=== PATIENT | male | born 1990 | race African-American/Black ===

== ENCOUNTER 2022-04-06 16:09 | Inpatient (IN) | payer SELFPAY ==
[2022-04-06 18:22] LABS: #Basophils 0.1 10x3/uL (0.0-0.2); #Eosinphils 0.1 10x3/uL (0.0-0.5); #Monocytes 0.9 10x3/uL (0.0-1.1); #Neutrophils 10.8 10x3/uL (1.5-8.4); %Basophils 0.6 % (0.0-2.0); %Eosinophils 0.4 % (0.0-6.0); %Lymphocytes 16.1 % (18.0-47.0); %Monocytes 6.2 % (0.0-10.0); %Neutrophils 76.3 % (40.0-75.0); Hemoglobin 16.1 g/dL (13.5-17.5); Mean Corpuscular HGB CONC 34.3 g/dL (32.0-36.0); Mean Corpuscular Volume 78.7 fl (81.2-95.1); Mean Platelet Volume 12.8 fl (7.4-10.4); Platelet Count 320 10x3/uL (150-450); RBC Distribution Width 14.8 % (11.5-14.5); Red Blood Cell (RBC) Count 5.97 10x6/uL (4.32-5.72); White Blood Cell (WBC) Count 14.1 10x3/uL (3.5-10.5)
[2022-04-06 18:27] LABS: Bilirubin Neg (Negative); Blood, Urine Negative (Negative); Clarity Clear (Clear); Glucose, Urine (Dipstick) >=1000 mg/dL (Negative); Ketone, Urine 150 mg/dL (Negative); Leukocyte Negative (Negative); Nitrite Negative (Negative); Protein, Urine (Dipstick) Negative (Neg-Trace); Specific Gravity, Urine 1.015 (1.005-1.030); Urobilinogen Normal mg/dL (Less than 2)
[2022-04-06 18:36] LABS: ALT (SGPT) 20 U/L (8-55); AST (SGOT) 17 U/L (5-34); Albumin 5.2 g/dL (3.5-5.0); Alkaline Phosphatase 200 U/L (40-110); Anion Gap 32 mmol/L (10-20); BUN (Urea Nitrogen) 21 mg/dL (8.9-20.6); Bilirubin, Total 0.7 mg/dL (0.2-1.2); Calc. Creatinine Clearance 0 mL/min (70-130); Calcium 11.1 mg/dL (7.8-10.44); Carbon Dioxide 17 mmol/L (22-29); Chloride 92 mmol/L (98-107); Estimated GFR 42; Globulin 4.5 g/dL (2.4-3.5); Potassium 5.4 mmol/L (3.5-5.1); Protein, Total 9.7 g/dL (6.0-8.3); Sodium 136 mmol/L (136-145)
[2022-04-06 18:48] LABS: Glucose 644 mg/dL (70-105)
[2022-04-06] MEDS ORDERED: Insulin Regular 300 UNITS/3 ML VIAL ONE (18:51)
[2022-04-06] MEDS ORDERED: INSULIN REGULAR IN 0.9 % NACL 100 UNIT/100 ML BAG ONE (18:51)
[2022-04-06 19:04] LABS: SARS-CoV-2 NAA Rapid Test Not Detected (NotDetected)
[2022-04-06] MEDS ORDERED: Guaifenesin DM 100-10/5 ML UDCUP PO PRN (19:18)
[2022-04-06] MEDS ORDERED: Ondansetron PF 4 MG/2 ML Vial IVP PRN (19:18)
[2022-04-06] MEDS ORDERED: HYDROcodone/Acetaminophen 5/325 mg Tablet PO PRN (19:18)
[2022-04-06] MEDS ORDERED: Calcium Carbonate 500 MG ChewTAB PO PRN (19:18)
[2022-04-06] MEDS ORDERED: Senokot S 8.6-50 MG TAB PO PRN (19:18)
[2022-04-06] MEDS ORDERED: Zolpidem Tartrate 5 MG TAB PO PRN (19:18)
[2022-04-06] MEDS ORDERED: Acetaminophen 325 MG TAB PO PRN (19:18)
[2022-04-06] MEDS ORDERED: INSULIN REGULAR IN 0.9 % NACL 100 UNIT in Premix Bag 1 BAG IVPB SCH (19:30)
[2022-04-06] MEDS ORDERED: Dextrose 5 %-0.45 % NaCl 1,000 ML IV SCH (19:30)
[2022-04-06 20:25] LABS: Actual Bicarbonate (HCO3v) 15 mEq/L (22-28); Base Excess -11.5 mEq/L (-2.0 to +3.0); Calcium, Ionized (venous) 1.24 mmol/L (1.16-1.32); Chloride (VBG) 101 mmol/L (98-106); Critical Notified By: CP.JL; Hemoglobin (Hb) 16.2 g/dL (13.2-17.3); Potassium (VBG) 4.16 mmol/L (3.70-5.30); Puncture Site Other Site; RapidComm Collect By LAB; Sodium 140.5 mmol/L (133-146); pH (venous) 7.22 (7.32-7.43)
[2022-04-06 21:56] VITALS: BMI 23.3
[2022-04-06] MEDS: Benzonatate 100 MG CAP PO SCH (22:23)
[2022-04-06] MEDS: Sodium Chloride 0.9% 1,000 ML IV SCH (22:40)
[2022-04-07 00:01] LABS: Anion Gap 18 mmol/L (10-20); BUN (Urea Nitrogen) 15 mg/dL (8.9-20.6); Calc. Creatinine Clearance 76 mL/min (70-130); Calcium 9.4 mg/dL (7.8-10.44); Carbon Dioxide 20 mmol/L (22-29); Chloride 108 mmol/L (98-107); Estimated GFR 64; Glucose 246 mg/dL (70-105); Magnesium 2.2 mg/dL (1.6-2.6); Phosphorus 1.9 mg/dL (2.3-4.7); Potassium 3.7 mmol/L (3.5-5.1); Sodium 142 mmol/L (136-145)
[2022-04-07] MEDS ORDERED: Potassium Phosphate 30 MMOL in Sodium Chloride 0.9% 250 ML 250 ML IVPB SCH (00:30)
[2022-04-07 04:28] LABS: #Eosinphils 0.2 10x3/uL (0.0-0.5); #Monocytes 1.1 10x3/uL (0.0-1.1); #Neutrophils 6.7 10x3/uL (1.5-8.4); %Basophils 0.4 % (0.0-2.0); %Eosinophils 2.1 % (0.0-6.0); %Lymphocytes 25.4 % (18.0-47.0); %Neutrophils 61.8 % (40.0-75.0); Hemoglobin 12.6 g/dL (13.5-17.5); Mean Corpuscular HGB CONC 35.1 g/dL (32.0-36.0); Mean Corpuscular Hemoglobin 27.2 pg (27.0-33.0); Mean Corpuscular Volume 77.5 fl (81.2-95.1); Platelet Count 258 10x3/uL (150-450); RBC Distribution Width 14.1 % (11.5-14.5); Red Blood Cell (RBC) Count 4.63 10x6/uL (4.32-5.72); White Blood Cell (WBC) Count 10.9 10x3/uL (3.5-10.5)
[2022-04-07 04:41] LABS: Anion Gap 14 mmol/L (10-20); BUN (Urea Nitrogen) 13 mg/dL (8.9-20.6); CK (CPK) 40 U/L (30-200); Calc. Creatinine Clearance 87 mL/min (70-130); Calcium 8.8 mg/dL (7.8-10.44); Carbon Dioxide 21 mmol/L (22-29); Chloride 110 mmol/L (98-107); Estimated GFR 75; Glucose 155 mg/dL (70-105); Phosphorus 3.2 mg/dL (2.3-4.7); Potassium 3.8 mmol/L (3.5-5.1); Sodium 141 mmol/L (136-145)
[2022-04-07] MEDS: Sodium Chloride 0.9% 1,000 ML IV SCH (05:06)
[2022-04-07] MEDS ORDERED: Dextrose 50% Abboject 50 ML SYRINGE SLOW IVP PRN (05:23)
[2022-04-07] MEDS ORDERED: HumaLOG 300 UNITS/3 ML VIAL SC PRN (05:23)
[2022-04-07] MEDS ORDERED: Dextrose 5% in Water 1,000 ML IV PRN (05:23)
[2022-04-07] MEDS ORDERED: Lactated Ringer's 1,000 ML IV SCH (05:30)
[2022-04-07] MEDS ORDERED: Lantus 1000 UNITS/10 ML VIAL SC SCH (06:00)
[2022-04-07] MEDS: Benzonatate 100 MG CAP PO SCH (08:06)
[2022-04-07] MEDS ORDERED: FLU VACC QS2022-23(6MOS UP)/PF 60 MCG/0.5 ML SYRINGE IM ONE (09:00)
[2022-04-07] MEDS ORDERED: Enoxaparin Sodium 30 MG/0.3 ML SYRINGE SC SCH (09:00)
[2022-04-07 09:24] LABS: Anion Gap 17 mmol/L (10-20); BUN (Urea Nitrogen) 11 mg/dL (8.9-20.6); Calc. Creatinine Clearance 87 mL/min (70-130); Carbon Dioxide 21 mmol/L (22-29); Chloride 108 mmol/L (98-107); Estimated GFR 74; Glucose 244 mg/dL (70-105); Magnesium 1.9 mg/dL (1.6-2.6); Phosphorus 4.3 mg/dL (2.3-4.7); Potassium 4.2 mmol/L (3.5-5.1); Sodium 142 mmol/L (136-145)
[2022-04-07 11:26] VITALS: BP 140/92; TEMP 98.1
[2022-04-07 12:13] LABS: Anion Gap 15 mmol/L (10-20); BUN (Urea Nitrogen) 11 mg/dL (8.9-20.6); Calc. Creatinine Clearance 91 mL/min (70-130); Calcium 8.8 mg/dL (7.8-10.44); Carbon Dioxide 20 mmol/L (22-29); Chloride 106 mmol/L (98-107); Estimated GFR 78; Glucose 346 mg/dL (70-105); Magnesium 1.9 mg/dL (1.6-2.6); Phosphorus 3.1 mg/dL (2.3-4.7); Potassium 4.4 mmol/L (3.5-5.1); Sodium 137 mmol/L (136-145)
[2022-04-07 13:20] LABS: Hemoglobin A1c Greater than 14.0 % (4.0-6.0)
[2022-04-08] MEDS ORDERED: Enoxaparin Sodium 40 MG/0.4 ML SYRINGE SC SCH (09:00)
== END 2022-04-07 14:09 | disposition home or self-care (01) | DRG 637 ==
LOC: CSHERS 16:09 → CSHICU 21:34 → CSHTELE 04-07 10:36
PROVIDERS: ADMIT Student in an Organized Health Care Education/Training Program; ATTEND Internal Medicine
DX: E11.10 Type 2 diabetes mellitus with ketoacidosis without coma (principal); R65.11 Systemic inflammatory response syndrome (SIRS) of non-infectious origin with acute organ dysfunction; N17.9 Acute kidney failure, unspecified; E87.5 Hyperkalemia; Z20.822 Contact with and (suspected) exposure to COVID-19; E86.0 Dehydration; Z91.199 Patient's noncompliance with other medical treatment and regimen due to unspecified reason; Z90.81 Acquired absence of spleen; Z90.49 Acquired absence of other specified parts of digestive tract; Z83.3 Family history of diabetes mellitus; Z79.4 Long term (current) use of insulin
CPT/HCPCS: 36415; 36416; 71045; 80048; 80053; 81003; 82010; 82550; 82805; 83036; 83735; 84100; 85025; 93005; 96374; J1650; J1815; J7042; J7050; J7120

== ENCOUNTER 2022-07-28 14:40 | Emergency (ER) | payer SELFPAY | END 2022-07-28 17:02 | disposition left against medical advice (07) | LOC: CSHERS 14:40 | DX: Z53.21 Procedure and treatment not carried out due to patient leaving prior to being seen by health care provider (principal) ==

== ENCOUNTER 2023-05-04 08:49 | Emergency (ER) | payer SELFPAY | END 2023-05-04 11:09 | disposition home or self-care (01) | LOC: CSHERS 08:49 | DX: M25.561 Pain in right knee (principal); E11.9 Type 2 diabetes mellitus without complications ==

== ENCOUNTER 2023-06-22 08:46 | Emergency (ER) | payer SELFPAY | END 2023-06-22 10:15 | disposition home or self-care (01) | LOC: CSHERS 08:46 | DX: M25.562 Pain in left knee (principal); E11.9 Type 2 diabetes mellitus without complications ==